=== PATIENT | male | born 1940 | race Two or more races ===

== ENCOUNTER 2017-02-02 10:13 | Inpatient (IN) | payer MEDICARE, BC ==
[~2017-02-02] VITALS: Ht 165.1 cm; Wt 71.7 kg
[2017-02-02] MEDS ORDERED: PARO20TA51 PO (10:28)
[2017-02-02] MEDS ORDERED: LOSA50TA21 PO (10:28)
[2017-02-02] MEDS ORDERED: FLUT1DIS IH (10:28)
[2017-02-02] MEDS ORDERED: ARMO150T4 PO (10:28)
[2017-02-02] MEDS ORDERED: ERGO50003 PO (10:45)
[2017-02-02] MEDS ORDERED: PROP20TA22 PO (10:45)
[2017-02-02] MEDS ORDERED: OMEP40CA37 PO (10:45)
[2017-02-02] MEDS ORDERED: RIFA550T PO (10:45)
[2017-02-02] MEDS ORDERED: LORAZEPAM 0.5 MG TABLET PO PRN (12:30)
[2017-02-02] MEDS ORDERED: ACETAMINOPHEN 325 MG TABLET PO PRN (12:30)
[2017-02-02] MEDS ORDERED: MAGNESIUM HYDROXIDE 30 ML UDC PO PRN (12:30)
[2017-02-02] MEDS ORDERED: ZOLPIDEM TARTRATE 5 MG TABLET PO PRN (12:30)
[2017-02-02] MEDS ORDERED: MAG HYDROX/AL HYDROX/SIMETH 30 ML UDC PO PRN (12:30)
--- NOTE | 2017-02-02 15:29 | NUR ---
GPS RN: ADMITTED THIS 76Y/O MALE FROM [facility], DIRECT ADMIT, ARRIVED TO THE FLOOR AT 1030. PATIENT IS ON 51/50 HOLD FOR DTS AND DTO. PATIENT WAS SLEEPING IN THE RUNNING CAR WITH HIS FOOT ON GAS, AT A GAS STATION. UPON FACE TO FACE ASSESSMENT PATIENT IS A/O X 2-3, WITH EPISODES OF CONFUSION. VS STABLE, NOT IN ANY PHYSICAL DISTRESS, AMBULATORY WITH STEADY GAIT, CONTINENT. PATIENT IS DISHEVELED, UNKEMPT, POOR HYGIENE, REFUSING TO WEAR SOCKS, AND WALKS BAREFOOT IN THE UNIT. PT IS GUARDED AND SUSPICIOUS, WITH EPISODES OF CONFUSION, REFUSED TO SIGN THE ADMISSION PAPERS AND THE PROPERTY MANAGEMENT FORM. ALSO REFUSED SKIN ASSESSMENT, PNA AND FLU VACCINE AND MRSA SWAB. DR. MATHUR IS IN THE UNIT AT THE TIME OF ADMISSION, ADMITTING ORDERS RECEIVED AND CARRIED OUT. DR. ZHANG MADE AWARE TO RECONCILE THE MEDICATIONS. PATIENT ORIENTED TO THE UNIT AND HIS ROOM, PROVIDED WITH A MEAL TRAY. PROVIDED WITH CALM AND SAFE ENVIRONMENT. CONTINUE TO MONITOR THE PATIENT.
--- NOTE | 2017-02-02 18:40 | NUR ---
GPS RN: PATIENT AGREED TO SKIN ASSESSMENT. NOTED WITH UROSTOMY ON THE LEFT LOWER ABDOMINAL WALL AFTER THE S/P ON HIS BLADDER ON 2002 (HX BLADDER CA). PATIENT REFUSED PICTURES OF STOMA. THE STOMA APPEARS PINK, NO DISCHARGE, NO ODOR NOTED. CLEANED THE SITE WITH NS, EMPTIED THE BAG. WILL ENDORSE TO THE UPCOMING NURSE.
--- NOTE | 2017-02-02 19:46 | NUR ---
PAGED DR. ALLEN TO RECONCILE THE MEDS. SAID HE WILL CHECK AND DO IT. WILL ENDORSE TO NEXT SHIFT FOR ANSON.
[2017-02-02 20:00] VITALS: BP 153/79
[2017-02-03 08:00] VITALS: BP 130/79
[2017-02-03 08:47] LABS: CHOLESTEROL 89 mg/dL (<200); HDL CHOLESTEROL 33 mg/dL (40-60); LDL 47 mg/dL (0-99); TRIGLYCERIDES 69 mg/dL (30-150)
[2017-02-03 08:54] LABS: ALANINE AMINOTRANSFERASE 25 U/L (12-78); ALBUMIN 2.5 g/dL (3.4-5.0); ALKALINE PHOSPHATASE 55 U/L (46-116); ASPARTATE AMINOTRANSFERASE 33 U/L (15-37); CALCIUM, SERUM 8.4 mg/dL (8.5-10.1); CARBON DIOXIDE 23 mmol/L (21-32); CHLORIDE 113 mmol/L (98-107); CREATININE 0.9 mg/dL (0.6-1.3); GLUCOSE 95 mg/dL (74-106); POTASSIUM 3.7 mmol/L (3.5-5.1); SODIUM SERUM 145 mmol/L (136-145); TOTAL PROTEIN, SERUM 5.9 g/dL (6.4-8.2); UREA NITROGEN, BLOOD 15 mg/dL (7-18)
[2017-02-03] MEDS: LOSARTAN POTASSIUM 50 MG TABLET PO SCH (09:14)
[2017-02-03] MEDS: PROPRANOLOL HCL 10 MG TABLET PO SCH ×2 (09:15→18:18)
[2017-02-03] MEDS: PAROXETINE HCL 20 MG TABLET PO SCH (09:15)
[2017-02-03] MEDS: FLUTICASONE/VILANTEROL 1 EACH BLST.W.DEV IH SCH (09:16)
--- NOTE | 2017-02-03 11:46 | NUR ---
CALLED DR. TUCKER FOR THE CONSULT AND LEFT A MESSAGE.
[2017-02-03 16:00] VITALS: BP 131/74
[2017-02-03 20:00] VITALS: BP 138/72
[2017-02-04 08:00] VITALS: BP 129/65
[2017-02-04 08:44] VITALS: BP 129/65
[2017-02-04] MEDS: PROPRANOLOL HCL 10 MG TABLET PO SCH (08:44)
[2017-02-04] MEDS: LOSARTAN POTASSIUM 50 MG TABLET PO SCH (08:44)
[2017-02-04] MEDS: PAROXETINE HCL 20 MG TABLET PO SCH (08:44)
[2017-02-04] MEDS: FLUTICASONE/VILANTEROL 1 EACH BLST.W.DEV IH SCH (08:45)
--- NOTE | 2017-02-04 12:40 | NUR ---
GPS DISCHARGE NOTES/ PATIENT D/C HOME AMA. PATIENT A/O X3, MED COMPLIANT, V/S STABLE, MEDICALLY STABLE. PATIENT DENIED SI/HI/AVH AT THIS TIME. BELONGING RETURNED BACK TO THE PATIENT. PATIENT SIGN PAPERWORK. ESCORTED PATIENT TO THE LOBBY FOR SAFETY. PATIENT PRECISION DYER BY SISTER NAME ISABEL GOING HOME. PHONE # [phone].
== END 2017-02-04 12:40 | disposition left against medical advice (07) | DRG 881 ==
LOC: GPS 10:13
PROVIDERS: ADMIT Psychiatry & Neurology Psychiatry; ATTEND Psychiatry & Neurology Psychiatry
DX: F32.9 Major depressive disorder, single episode, unspecified (principal); F03.90 Unspecified dementia, unspecified severity, without behavioral disturbance, psychotic disturbance, mood disturbance, and anxiety; E78.5 Hyperlipidemia, unspecified; Z73.6 Limitation of activities due to disability; G47.419 Narcolepsy without cataplexy; I10 Essential (primary) hypertension; J45.909 Unspecified asthma, uncomplicated; K21.9 Gastro-esophageal reflux disease without esophagitis; Z81.8 Family history of other mental and behavioral disorders; Z82.49 Family history of ischemic heart disease and other diseases of the circulatory system; Z87.891 Personal history of nicotine dependence
CPT/HCPCS: 36415; 80053-TC; 80061-TC